=== PATIENT | male | born 1965 | race Caucasian/White ===

== ENCOUNTER 2017-05-21 13:36 | Emergency (ER) | payer BC ==
--- NOTE | 2017-05-21 14:30 | Emergency Department Record ---
History of Present Illness - General Chief Complaint: Ankle/Foot Injury Stated Complaint: RT HEEL BRUISED,SWOLLEN,PAIN Time Seen by Provider: 05/21/17 14:05 Source: Patient Mode of Arrival: Wheelchair Limitations: No limitations - History of Present Illness Initial Comments: 52 yo male presents with right heel pain. He was out in the dark last night. He jump down from his vehicle and landed on his right heel. It was dark and he was unable to see what caused the injury. No lacerations. The Achilles Tendon is not tender. He is tender on the bottom of his posterior foot. MD Complaint: Foot injury Onset/Timin -: Days(s) Injury: Foot: Right Type of Injury: Blunt Place: Home Severity scale (1-10): 8 Improves With: Nothing Worsens With: Palpation, Weight bearing Context: Other Associated Symptoms: Able to partially bear weight - Related Data Home Medications Medication Instructions Recorded Confirmed Last Taken Fentanyl [Fentanyl] 1 patch TOP ASDIR 05/21/17 05/21/17 Unknown Allergies Allergy/AdvReac Type Severity Reaction Status Date / Time acetaminophen [From Percocet] Allergy HIVES Verified 11/07/15 15:38 ketorolac tromethamine Allergy HIVES Verified 11/07/15 15:38 [From Toradol] oxycodone HCl [From Percocet] Allergy HIVES Verified 11/07/15 15:38 ibuprofen AdvReac ABDOMINAL Verified 11/07/15 15:38 PAIN Travel Screening - Travel/Exposure Within Last 30 Days Have you traveled within the last 30 days?: No Review of Systems Constitutional: Denies: Chills, Fever, Weakness Eyes: Denies: Eye discharge ENT: Denies: Congestion, Throat pain Respiratory: Denies: Cough, Dyspnea, Hemoptysis, Wheezes Cardiovascular: Denies: Chest pain, Palpitations, Syncope Endocrine: Denies: Fatigue Gastrointestinal: Denies: Abdominal pain, Diarrhea, Nausea, Vomiting Genitourinary: Denies: Dysuria, Frequency, Hematuria Musculoskeletal: Reports: As per HPI, Arthralgia. Denies: Back pain, Joint swelling Skin: Denies: Bruising, Change in color, Rash Neurological: Denies: Abnormal gait, Headache, Numbness, Tingling, Tremors, Weakness Psychiatric: Denies: Anxiety Hematological/Lymphatic: Denies: Blood Clots, Easy bleeding, Easy bruising, Swollen glands Past Medical History - SOCIAL HISTORY Smoking Status: Current every day smoker Alcohol Use: None Drug Use: None - RESPIRATORY Hx Respiratory Disorders: Yes Hx Asthma: Yes - CARDIOVASCULAR Hx Cardio Disorders: No - NEURO Hx Neuro Disorders: Yes Comment:: Spine surgery Rods - GI Hx GI Disorders: Yes Hx Ulcer: Yes - Hx Genitourinary Disorders: No - ENDOCRINE Hx Endocrine Disorders: No - MUSCULOSKELETAL Hx Musculoskeletal Disorders: Yes Hx Arthritis: Yes Hx Back Injury: Yes - PSYCH Hx Psych Problems: Yes Hx Depression: Yes (bipolar) - HEMATOLOGY/ONCOLOGY Hx Hematology/Oncology Disorders: No Family Medical History Any Significant Family History?: No Family Hx Comment (NOT TO BE USED IN PLACE OF ITEMS BELOW): pt states he is adopted and unsure of family history Physical Exam - General General Appearance: Alert, Oriented x3, Cooperative, No acute distress Limitations: No limitations - Head Head exam: Atraumatic, Normocephalic, Normal inspection - Eye Eye exam: Normal appearance. negative: Conjunctival injection, Periorbital swelling - ENT ENT exam: Normal exam Ear exam: Normal external inspection Nasal Exam: Normal inspection - Neck Neck exam: Normal inspection - Cardiovascular Peripheral Pulses: 2+: Dorsalis Pedis (R) - Rectal Rectal exam: Deferred - exam: Deferred - Extremities Extremities exam: Normal inspection, Full ROM, Normal capillary refill, Tenderness, Other (No tenderness over the Achilles, normal Mixon test response, intact skin, malleoli are non tender). negative: Calf tenderness, Joint swelling, Pedal edema Image of Feet: 1 - tender, normal inspection, inspection - Back Back exam: Reports: Normal inspection - Neurological Neurological exam: Alert, Oriented X3. negative: Motor sensory deficit - Psychiatric Psychiatric exam: negative: Agitated, Anxious - Skin Skin exam: Dry, Intact, Normal color, Warm. negative: Erythema Course Vital Signs 05/21/17 13:47 Temperature 98.7 F Pulse Rate 99 H Respiratory 20 Rate Blood Pressure 129/75 Pulse Ox 98 - Reevaluation(s) Reevaluation #1: The XR was negative for any acute changes. Prior post op changes noted He will be provided a donjoy and crutches He is to follow up with his PCP or orthopedist in the next week if pain continues 05/21/17 14:59 Disposition Disposition: Discharge Clinical Impression: Contusion of right heel Qualifiers: Encounter type: initial encounter Qualified Code(s): S90.31XA - Contusion of right foot, initial encounter Disposition: Home, Self-Care Condition: (1) Good Instructions: Foot Contusion (ED) Additional Instructions: Use the crutches and boot for comfort and support If you pain continues you will need a recheck in the next week Forms: Patient Portal Access Time of Disposition: 15:02 Quality - Quality Measures Quality Measures: N/A - Blood Pressure Screening Does Patient Have Any of the Following: No Blood Pressure Classification: Pre-Hypertensive BP Reading Systolic Measurement: 129 Diastolic Measurement: 75 Screening for High Blood Pressure: < Pre-Hypertensive BP, F/U Documented > [ G8950] Pre-Hypertensive Follow-up Interventions: Referral to alternative/primary care provider.
--- NOTE | 2017-05-22 15:14 | RADIOLOGY REPORT ---
EXAM: FOOT, RIGHT 3 VIEWS HISTORY: RIGHT HEEL INJURY, GOT OUT OF HIS LIFT TRUCK LAST NIGHT AND LANDED FUNNY ON THE RIGHT FOOT. TECHNIQUE: Three views, right foot. COMPARISON: Right foot series, 12/25/09. FINDINGS: Postop changes again seen involving the first metatarsal and proximal phalanx of the great toe. Mild degenerative arthritis at the first MTP joint and also the second MTP joint. Mild hallux valgus deformity at the first MTP joint. There is a small benign-appearing area of sclerosis posteriorly in the calcaneus and a small plantar calcaneal spur. No definite acute fracture of the right foot identified. IMPRESSION: 1. POSTOP CHANGES INVOLVING THE FIRST METATARSAL AND PROXIMAL PHALANX OF THE GREAT TOE. 2. NO DEFINITE FRACTURE OF THE RIGHT FOOT IDENTIFIED. 3. SOME CHRONIC-APPEARING FINDINGS NOTED ABOVE. JOB NUMBER: [id number] MTDD
== END 2017-05-21 15:33 | disposition home or self-care (01) ==
LOC: ER 13:36
DX: S90.31XA Contusion of right foot, initial encounter (principal); X50.0XXA Overexertion from strenuous movement or load, initial encounter; Y92.009 Unspecified place in unspecified non-institutional (private) residence as the place of occurrence of the external cause
CPT/HCPCS: 99283

== ENCOUNTER 2018-01-13 10:59 | Emergency (ER) | payer BC ==
--- NOTE | 2018-01-13 11:29 | Emergency Department Record ---
History of Present Illness - General Chief Complaint: Neck Injury/Pain Time Seen by Provider: 01/13/18 11:21 Source: Patient, RN notes reviewed Mode of Arrival: Ambulatory - History of Present Illness Initial Comments: patient here for sore throat and difficulty swallowing soft food which started 3 days ago. He states a slight cough and he stop his narcotics 10 days ago and he is tremulous now and he said he did go through withdrawal about 7 days ago and he is now back to normal. He was on the narcotics for 2 years for chronic neck pain. Neck is sore and he had neck surgery October 2015. Dr. Jose Elias NASH is working with him on this process and is his primary Dr. Patient is able to drink water Place: Home Severity scale (1-10): 7 - Related Data Home Medications Medication Instructions Recorded Confirmed Last Taken Citalopram Hydrobromide 40 mg PO DAILY 01/13/18 01/13/18 1 Day Ago [Citalopram HBr] ~01/12/18 Oxycodone HCl/Acetaminophen 1 tab PO Q6H PRN 01/13/18 01/13/18 01/03/18 [Oxycodone/Acetaminophen 10mg/325mg] Trazodone HCl 100 mg PO QHS 01/13/18 01/13/18 1 Day Ago ~01/12/18 Zonisamide [Zonegran] 400 mg PO QHS 01/13/18 01/13/18 1 Day Ago ~01/12/18 Previous Rx's Medication Instructions Recorded Amoxicillin [Amoxil] 5 ml PO TID #150 ml 01/13/18 Cyclobenzaprine HCl [Flexeril] 10 mg PO TID #20 tablet 01/13/18 Allergies Allergy/AdvReac Type Severity Reaction Status Date / Time ketorolac tromethamine Allergy HIVES Verified 01/13/18 11:11 [From Toradol] ibuprofen AdvReac ABDOMINAL Verified 01/13/18 11:11 PAIN Travel Screening - Travel/Exposure Within Last 30 Days Have you traveled within the last 30 days?: No - Travel/Exposure Within Last Year Have you traveled outside the [place] in the last year?: No - Additonal Travel Details Have you been exposed to anyone with a communicable illness?: No - Travel Symptoms Symptom Screening: None Review of Systems Reviewed: No additional complaints except as noted below Constitutional: Reports: As per HPI. Denies: Chills, Fever, Malaise, Night sweats, Weakness, Weight change Eyes: Reports: As per HPI. Denies: Eye discharge, Eye pain, Photophobia, Vision change ENT: Reports: As per HPI. Denies: Congestion, Dental pain, Ear pain, Epistaxis , Hearing loss, Throat pain Respiratory: Reports: As per HPI. Denies: Cough, Dyspnea, Hemoptysis, Stridor, Wheezes Cardiovascular: Reports: As per HPI. Denies: Arrhythmia, Chest pain, Dyspnea on exertion, Edema, Murmurs, Orthopnea, Palpitations, Paroxysmal nocturnal dyspnea, Rheumatic Fever, Syncope Endocrine: Reports: As per HPI. Denies: Fatigue, Heat or cold intolerance, Polydipsia, Polyuria Gastrointestinal: Reports: As per HPI. Denies: Abdominal pain, Constipation, Diarrhea, Hematemesis, Hematochezia, Melena, Nausea, Vomiting Genitourinary: Reports: As per HPI. Denies: Dysuria, Frequency, Hematuria, Incontinence, Retention, Testicular pain, Testicular mass, Urgency Musculoskeletal: Reports: As per HPI. Denies: Arthralgia, Back pain, Gout, Joint swelling, Myalgia, Neck pain Skin: Reports: As per HPI. Denies: Bruising, Change in color, Change in hair/ nails, Lesions, Pruritus, Rash Neurological: Reports: As per HPI. Denies: Abnormal gait, Confusion, Headache, Numbness, Paresthesias, Seizure, Tingling, Tremors, Vertigo, Weakness Psychiatric: Reports: As per HPI. Denies: Anxiety, Auditory hallucinations, Depression, Homicidal thoughts, Suicidal thoughts, Visual hallucinations Hematological/Lymphatic: Reports: As per HPI. Denies: Anemia, Blood Clots, Easy bleeding, Easy bruising, Swollen glands Past Medical History - SOCIAL HISTORY Smoking Status: Light tobacco smoker (<10/day) Alcohol Use: None Drug Use: None - RESPIRATORY Hx Respiratory Disorders: Yes Hx Asthma: Yes - CARDIOVASCULAR Hx Cardio Disorders: No - NEURO Hx Neuro Disorders: Yes Comment:: Spine surgery Rods c3-c7 - GI Hx GI Disorders: Yes Hx Ulcer: Yes - Hx Genitourinary Disorders: No - ENDOCRINE Hx Endocrine Disorders: No - MUSCULOSKELETAL Hx Musculoskeletal Disorders: Yes Hx Arthritis: Yes Hx Back Injury: Yes Comment:: frozen left shoulder - PSYCH Hx Psych Problems: Yes Hx Depression: Yes (bipolar) - HEMATOLOGY/ONCOLOGY Hx Hematology/Oncology Disorders: No Family Medical History Any Significant Family History?: Yes Family Hx Comment (NOT TO BE USED IN PLACE OF ITEMS BELOW): pt states he is adopted and unsure of family history Course Vital Signs 01/13/18 11:02 Temperature 97.3 F L Pulse Rate 74 Respiratory 22 Rate Blood Pressure 98/79 Pulse Ox 100 - Reevaluation(s) Reevaluation #1: Patient said when the opiates came back from the UDS positive he did find a pain pill from Dr. Jimenez from two years ago. 01/13/18 13:24 01/13/18 13:28 Medical Decision Making - Data Complexity MDM Data: Labs Ordered and/or Reviewed (strep negative), X-Ray Ordered and/or Reviewed (circular lseion right chest, will need follow up CT scan chest from primary) - Lab Data Result diagrams: 01/13/18 11:47 Disposition Clinical Impression: Laryngitis, Abnormal chest xray Pharyngitis Qualifiers: Pharyngitis/tonsillitis etiology: unspecified etiology Qualified Code(s): J02.9 - Acute pharyngitis, unspecified Disposition: Home, Self-Care Condition: (1) Good Instructions: Pharyngitis (ED), Laryngitis (ED) Additional Instructions: follow up with Primary Dr Clark in one week will need follow up CT of chest or old chest xray to compare stability of incidental lung nodule tylenol for PRN pain Prescriptions: Amoxicillin [Amoxil] 5 ml PO TID #150 ml Cyclobenzaprine HCl [Flexeril] 10 mg PO TID #20 tablet Forms: Patient Portal Access Time of Disposition: 13:20 Quality - Quality Measures Quality Measures: N/A - Blood Pressure Screening Does Patient Have Any of the Following: No Blood Pressure Classification: Normal BP Reading Systolic Measurement: 98 Diastolic Measurement: 79 Screening for High Blood Pressure: < Normal BP, F/U Not Required > [G8783]
[2018-01-13 11:55] LABS: BASO % 0.3 % (0-6); EOS % 1.4 % (0-6); HEMATOCRIT 42.1 % (42.0-52.0); HEMOGLOBIN 13.6 gm/dl (14.0-18.0); LYMPH % 24.7 % (16-45); MEAN CELL VOLUME 91.7 fl (81-97); MEAN CORPUSCULAR HEMOGLOBIN 29.6 pg (27-33); MEAN CORPUSCULAR HGB CONC 32.3 g/dl (32-36); MEAN PLATELET VOLUME 10.3 fl (7.4-10.4); MONO % 9.6 % (0-9); PLATELET COUNT 332 K/uL (130-400); RED BLOOD COUNT 4.59 M/uL (4.40-5.70); RED CELL DISTRIBUTION WIDTH 15.1 % (11.5-14.5); WHITE BLOOD COUNT W/O DIFF 13.3 K/uL (4.2-12.2)
[2018-01-13 12:40] LABS: URINE APPEARANCE CLEAR; URINE BILIRUBIN NEGATIVE (NEGATIVE); URINE BLOOD NEGATIVE (NEGATIVE); URINE COLOR YELLOW; URINE GLUCOSE (UA) NEGATIVE (NEGATIVE); URINE KETONE NEGATIVE (NEGATIVE); URINE LEUKOCYTE ESTERASE NEGATIVE (NEGATIVE); URINE NITRITE NEGATIVE (NEGATIVE); URINE PROTEIN NEGATIVE (NEGATIVE); URINE UROBILINOGEN 0.2 E.U./dL (0.20 - 1.00)
[2018-01-13 12:45] LABS: AMPHETAMINE SCREEN URINE NOT DETECTED; BARBITURATE SCREEN URINE DETECTED; BENZODIAZEPINE SCREEN URINE NOT DETECTED; COCAINE SCREEN URINE NOT DETECTED; METHADONE SCREEN URINE NOT DETECTED; METHAMPHETAMINE SCREEN NOT DETECTED; OPIATE SCREEN URINE DETECTED; OXYCODONE SCREEN URINE NOT DETECTED; PHENCYCLIDINE SCREEN URINE NOT DETECTED; PROPOXYPHENE SCREEN URINE NOT DETECTED; THC SCREEN URINE NOT DETECTED; TRICYCLIC ANTIDEPRESSANT SCRN NOT DETECTED
[2018-01-13] MEDS ORDERED: CYCLOBENZAPRINE 10MG TABLET PO PRN (13:26)
--- NOTE | 2018-01-14 10:57 | RADIOLOGY REPORT ---
EXAM: CHEST, TWO VIEWS HISTORY: DYSPNEA. THROAT SWELLING AND PAIN FOR THREE DAYS. TECHNIQUE: Two views of the chest were obtained. Comparison: None. FINDINGS: The heart is not enlarged. There is a 2.2 x 2.2 cm size range round nodule within the right middle lobe. Previous images are unavailable to document stability. Otherwise, the lungs and pleural spaces are clear. No acute osseous abnormality. Lower cervical fusion. IMPRESSION: THERE IS A 2.2 CM SIZED RANGE NODULE RIGHT MIDDLE LOBE. PREVIOUS IMAGES UNAVAILABLE TO DOCUMENT STABILITY. GIVEN THIS, WOULD RECOMMEND FURTHER ASSESSMENT WITH POST CONTRAST CT OF THE CHEST. JOB NUMBER: [id number] MTDD
--- NOTE | 2018-01-14 12:38 | RADIOLOGY REPORT ---
EXAM: NECK SOFT TISSUE, TWO VIEWS HISTORY: SORE THROAT. DIFFICULTY SWALLOWING. TECHNIQUE: Two views of the neck soft tissues were obtained. FINDINGS: Previous C3 through C7 posterior fusion. There is moderate cervical spondylosis. No evidence for hardware failure. The pre-cervical soft tissues are unremarkable. IMPRESSION: UNREMARKABLE NECK SOFT TISSUE RADIOGRAPHS. PREVIOUS C3 THROUGH C7 POSTERIOR FUSION AND DECOMPRESSION. JOB NUMBER: [id number] MTDD
== END 2018-01-13 13:43 | disposition home or self-care (01) ==
LOC: ER 10:59
DX: J04.0 Acute laryngitis (principal); J02.9 Acute pharyngitis, unspecified; R13.10 Dysphagia, unspecified; R19.8 Other specified symptoms and signs involving the digestive system and abdomen; M54.2 Cervicalgia; F11.90 Opioid use, unspecified, uncomplicated; F17.210 Nicotine dependence, cigarettes, uncomplicated
CPT/HCPCS: 70360; 71046; 80305; 81003; 85025; 87880; 99283; 99284

== ENCOUNTER 2018-01-21 18:07 | Emergency (ER) | payer BC ==
--- NOTE | 2018-01-21 19:02 | Emergency Department Record ---
History of Present Illness - General Chief complaint: ENT Stated complaint: RT SIDE OF FACE PAIN, EAR, THROAT Time Seen by Provider: 01/21/18 18:53 Source: Patient (and spouse) Mode of Arrival: Ambulatory - History of Present Illness Initial comments: The patient states that he was here 2.5 weeks ago with a sore throat, swollen glands bilaterally. He was given liquid amoxicillin which he took as directed until it was gone. His last dose was this morning. After breakfast this morning he vomited twice and his right ear and jaw became painful as well as pressure behind his right eye, "like there's green snot back there." He is coughing up green and blowing green out of his nose. He denies fevers, chills, allan, FELA, CP AP. He states he sees Dr. Bai as his primary care. He is on percocet for his chronic neck pain. He has rods in 6 of his cervical vertebrae from an old injury. MD complaint: Ear pain, Sore throat, Other (pressure behind right eye) Onset/Timin -: Week(s) Location: R ear, Throat Severity: Moderate Severity scale (1-10): 9 Consistency: Constant Improves with: None Worsens with: None Associated Symptoms: Rhinorrhea, Sore throat - Related Data Previous Rx's Medication Instructions Recorded Cyclobenzaprine HCl [Flexeril] 10 mg PO TID #20 tablet 01/13/18 Amoxicillin/Potassium Clav 1 tab PO BID #40 tab 01/21/18 [Augmentin 875-125 Tablet] Allergies Allergy/AdvReac Type Severity Reaction Status Date / Time ketorolac tromethamine Allergy HIVES Verified 01/21/18 18:17 [From Toradol] ibuprofen AdvReac ABDOMINAL Verified 01/21/18 18:17 PAIN Travel Screening - Travel/Exposure Within Last 30 Days Have you traveled within the last 30 days?: No - Travel/Exposure Within Last Year Have you traveled outside the [place] in the last year?: No - Additonal Travel Details Have you been exposed to anyone with a communicable illness?: No - Travel Symptoms Symptom Screening: None Review of Systems Reviewed: No additional complaints except as noted below Constitutional: Reports: As per HPI. Denies: Chills, Fever, Malaise, Night sweats, Weakness, Weight change Eyes: Reports: As per HPI. Denies: Eye discharge, Eye pain, Photophobia, Vision change ENT: Reports: As per HPI. Denies: Congestion, Dental pain, Ear pain, Epistaxis , Hearing loss, Throat pain Respiratory: Reports: As per HPI. Denies: Cough, Dyspnea, Hemoptysis, Stridor, Wheezes Cardiovascular: Reports: As per HPI. Denies: Arrhythmia, Chest pain, Dyspnea on exertion, Edema, Murmurs, Orthopnea, Palpitations, Paroxysmal nocturnal dyspnea, Rheumatic Fever, Syncope Endocrine: Reports: As per HPI. Denies: Fatigue, Heat or cold intolerance, Polydipsia, Polyuria Gastrointestinal: Reports: As per HPI. Denies: Abdominal pain, Constipation, Diarrhea, Hematemesis, Hematochezia, Melena, Nausea, Vomiting Genitourinary: Reports: As per HPI. Denies: Dysuria, Frequency, Hematuria, Incontinence, Retention, Testicular pain, Testicular mass, Urgency Musculoskeletal: Reports: As per HPI. Denies: Arthralgia, Back pain, Gout, Joint swelling, Myalgia, Neck pain Skin: Reports: As per HPI. Denies: Bruising, Change in color, Change in hair/ nails, Lesions, Pruritus, Rash Neurological: Reports: As per HPI. Denies: Abnormal gait, Confusion, Headache, Numbness, Paresthesias, Seizure, Tingling, Tremors, Vertigo, Weakness Psychiatric: Reports: As per HPI. Denies: Anxiety, Auditory hallucinations, Depression, Homicidal thoughts, Suicidal thoughts, Visual hallucinations Hematological/Lymphatic: Reports: As per HPI. Denies: Anemia, Blood Clots, Easy bleeding, Easy bruising, Swollen glands Past Medical History - SOCIAL HISTORY Smoking Status: Light tobacco smoker (<10/day) Alcohol Use: None Drug Use: None - RESPIRATORY Hx Respiratory Disorders: Yes Hx Asthma: Yes - CARDIOVASCULAR Hx Cardio Disorders: No - NEURO Hx Neuro Disorders: Yes Comment:: Spine surgery Rods c3-c7 - GI Hx GI Disorders: Yes Hx Ulcer: Yes - Hx Genitourinary Disorders: No - ENDOCRINE Hx Endocrine Disorders: No - MUSCULOSKELETAL Hx Musculoskeletal Disorders: Yes Hx Arthritis: Yes Hx Back Injury: Yes Comment:: frozen left shoulder - PSYCH Hx Psych Problems: Yes Hx Depression: Yes (bipolar) - HEMATOLOGY/ONCOLOGY Hx Hematology/Oncology Disorders: No Family Medical History Any Significant Family History?: No Family Hx Comment (NOT TO BE USED IN PLACE OF ITEMS BELOW): pt states he is adopted and unsure of family history Physical Exam - General General Appearance: Alert, Oriented x3, Cooperative, Moderate distress - Head Head exam: Atraumatic, Normal inspection - Eye Eye exam: Normal appearance, PERRL, EOMI. negative: Conjunctival injection, Nystagmus Pupils: Normal accommodation - ENT ENT exam: Normal exam, Mucous membranes dry, Normal external ear exam, Normal orophraynx, Other (pyrulent appearing fluid behind ears left greater than right) Ear exam: Normal external inspection. negative: External canal tenderness Nasal Exam: Normal inspection, Sinus tenderness (tender over forehead). negative: Discharge Mouth exam: Normal external inspection, Tongue normal. negative: Drooling, Muffled voice, Trismus Teeth exam: Normal inspection. negative: Dental caries Throat exam: Normal inspection. negative: Tonsillar erythema, Tonsillar exudate - Neck Neck exam: Normal inspection, Full ROM, Lymphadenopathy (a single lymph node, right anterior cervical), Other (old mindline surgical scar posterior neck C2-7) . negative: Meningismus, Tenderness - Respiratory Respiratory exam: Normal lung sounds bilaterally. negative: Respiratory distress - Cardiovascular Cardiovascular Exam: Regular rate, Normal rhythm, Normal heart sounds - GI/Abdominal GI/Abdominal exam: Soft, Normal bowel sounds. negative: Tenderness - Rectal Rectal exam: Deferred - exam: Deferred - Extremities Extremities exam: Normal inspection, Full ROM, Normal capillary refill. negative: Tenderness - Back Back exam: Reports: Normal inspection, Full ROM. Denies: Muscle spasm, Rash noted, Tenderness - Neurological Neurological exam: Alert, CN II-XII intact, Normal gait, Oriented X3, Reflexes normal. negative: Motor sensory deficit - Psychiatric Psychiatric exam: Anxious, Normal mood - Skin Skin exam: Dry, Intact, Normal color, Warm Course Vital Signs 01/21/18 18:19 Temperature 98 F Pulse Rate 80 Respiratory 22 Rate Blood Pressure 140/91 Pulse Ox 97 Medical Decision Making - Management Options MDM Management: No Additional Work-up Planned - Data Complexity MDM Data: X-Ray Ordered and/or Reviewed (CT Head and facial bones: Negative for abnormality per Rad.) - Lab Data Result diagrams: 01/21/18 19:20 01/21/18 19:20 Disposition Disposition: Discharge Clinical Impression: Otalgia, right ear, Chronic otitis media of both ears with effusion Disposition: Home, Self-Care Condition: (1) Good Instructions: Serous Otitis Media (ED) Additional Instructions: Take augmentin as directed until gone. Tylenol as directed as needed for pain. Continue present meds. Follow up with PCP as previously arranged tomorrow morning. Prescriptions: Amoxicillin/Potassium Clav [Augmentin 875-125 Tablet] 1 tab PO BID #40 tab Quality - Quality Measures Quality Measures: N/A - Blood Pressure Screening Does Patient Have Any of the Following: No Blood Pressure Classification: Hypertensive Reading Systolic Measurement: 140 Diastolic Measurement: 91 Screening for High Blood Pressure: < Pre-Hypertensive BP, F/U Documented > [ G8950] Pre-Hypertensive Follow-up Interventions: Follow-up with rescreen every year.
[2018-01-21] MEDS ORDERED: ACETAMINOPHEN 1,000 MG/100 ML BTL IVPB ONE (19:17)
[2018-01-21] MEDS ORDERED: ONDANSETRON HCL IV 4 MG/2 ML VIAL IVP ONE (19:17)
[2018-01-21] MEDS ORDERED: 0.9 % SODIUM CHLORIDE 1,000 ML BAG IV ONE (19:17)
[2018-01-21 19:30] LABS: BASO % 0.3 % (0-6); EOS % 2.9 % (0-6); GRAN % 50.8 % (47-80); HEMATOCRIT 39.7 % (42.0-52.0); HEMOGLOBIN 12.7 gm/dl (14.0-18.0); LYMPH % 37.7 % (16-45); MEAN CELL VOLUME 93.6 fl (81-97); MEAN CORPUSCULAR HEMOGLOBIN 29.9 pg (27-33); MEAN PLATELET VOLUME 8.8 fl (7.4-10.4); MONO % 8.3 % (0-9); PLATELET COUNT 332 K/uL (130-400); RED BLOOD COUNT 4.24 M/uL (4.40-5.70); RED CELL DISTRIBUTION WIDTH 14.9 % (11.5-14.5); WHITE BLOOD COUNT W/O DIFF 11.9 K/uL (4.2-12.2)
[2018-01-21 19:41] LABS: BLOOD UREA NITROGEN 7 mg/dL (6-20); CREATININE 0.8 mg/dL (0.7-1.2); EST GLOMERULAR FILTRATION RATE > 60 mL/min
[2018-01-21 19:43] LABS: GLUCOSE,RANDOM 77 mg/dL (74-109)
[2018-01-21] MEDS ORDERED: AMOXICILLIN/POTASSIUM CLAV 875MG/125MG TABLET PO ONE (20:46)
--- NOTE | 2018-01-23 08:37 | CT SCAN REPORT ---
EXAM: HEAD CT HISTORY: RIGHT SIDED HEAD, FACE AND JAW PAIN FOR TWO AND A HALF WEEKS. TECHNIQUE: Noncontrast head CT was obtained. Comparison: 03/13/17. FINDINGS: The ventricles and subarachnoid spaces are unremarkable. There is no mass or mass effect. No intra or extraaxial hemorrhage identified. There is no fracture or acute osseous abnormality. The visualized sinuses and mastoid air cells are clear. IMPRESSION: UNREMARKABLE HEAD CT. JOB NUMBER: [id number] [facility]
--- NOTE | 2018-01-23 08:40 | CT SCAN REPORT ---
EXAM: CT OF THE FACIAL BONES HISTORY: RIGHT HEAD AND FACE PAIN. PAIN INTO THE RIGHT JAW. TECHNIQUE: Noncontrast CT of the facial bones was obtained. Comparison: None. FINDINGS: The sinuses are clear. No wall thickening or sinusitis identified. No fracture identified. The globes and orbits are symmetric and equal. No nasal fracture seen. The mastoid air cells and middle ears are unremarkable. IMPRESSION: UNREMARKABLE CT OF THE FACIAL BONES. JOB NUMBER: [id number] MTDD
== END 2018-01-21 21:03 | disposition home or self-care (01) ==
LOC: ER 18:07
DX: H65.493 Other chronic nonsuppurative otitis media, bilateral (principal); R11.10 Vomiting, unspecified; J02.9 Acute pharyngitis, unspecified; R51 Headache; R68.84 Jaw pain; F17.210 Nicotine dependence, cigarettes, uncomplicated
CPT/HCPCS: 99284 ×2; 96365; 96375; 85025; 80048; 70450; 70486; J2405